=== PATIENT | male | born 1955 | race Two or more races ===

== ENCOUNTER 2020-04-30 07:11 | Day surgery (SDC) | payer MEDICAID, MEDICARE, OTHER ==
[2020-04-30] MEDS ORDERED: Propofol 200 MG/20 ML SDV ONE (07:19)
[2020-04-30] MEDS ORDERED: fentaNYL 100 MCG/2 ML SDV ONE (07:19)
[2020-04-30] MEDS ORDERED: Midazolam 1 MG/ML 2 ML SDV ONE (07:19)
[2020-04-30] MEDS ORDERED: Sodium Chloride 0.9% 1,000 ML IV SCH (07:45)
[2020-04-30] MEDS ORDERED: Lidocaine 1% 2 ML ONE (08:12)
[2020-04-30 09:59] VITALS: BP 113/78; PULSE 67
--- NOTE | 2020-05-03 11:53 | OR ---
DATE OF PROCEDURE: 04/30/2020 SURGEON: Uriah Banerjee MD PROCEDURE: Colonoscopy. FINDINGS: 1. Diverticulosis, mild, mostly limited to sigmoid colon. 2. Transverse colon polyp, approximately 5 mm, completely removed using hot snare wire device. COMPLICATIONS: None. FORENSIC ENGINEER: None. ANESTHESIA: MAC. PREOPERATIVE DIAGNOSIS: Family history of colorectal cancer. POSTOPERATIVE DIAGNOSIS: Family history of colorectal cancer. RISKS: Risks, benefits, alternatives, and limitations including but not limited to infection, bleeding, and perforation were explained to the patient, who wished to proceed. PROCEDURE IN DETAIL: The patient was placed in left lateral decubitus position. Digital rectal exam was performed without abnormality. The scope was introduced and advanced atraumatically to the ileocecal valve. A photo was taken. The scope was brought back through the ascending, transverse, and descending colon and retroflexed. No evidence of old or new blood. The aforementioned polyp was identified and completely removed. The diverticulosis would be described as mild, limited to sigmoid colon. No abnormalities on retroflexion. Greater than 8 minutes was spent removing the scope. The patient tolerated the procedure well. Uriah Banerjee MD /[id number]
== END 2020-04-30 10:20 | disposition home or self-care (01) ==
LOC: JP.SDS 07:11
PROVIDERS: ATTEND Surgery
DX: Z12.11 Encounter for screening for malignant neoplasm of colon (principal); D12.3 Benign neoplasm of transverse colon; K57.30 Diverticulosis of large intestine without perforation or abscess without bleeding; E66.9 Obesity, unspecified; Z80.0 Family history of malignant neoplasm of digestive organs; Z86.010 Personal history of colon polyps; Z68.36 Body mass index [BMI] 36.0-36.9, adult
CPT/HCPCS: 45385; J2001; J2250; J2704; J3010; J7030; 88305

== ENCOUNTER 2022-03-31 06:30 | Day surgery (SDC) | payer MEDICARE, OTHER ==
[2022-03-31] MEDS ORDERED: fentaNYL 100 MCG/2 ML SDV ONE (07:22)
[2022-03-31] MEDS ORDERED: Midazolam 1 MG/ML 2 ML SDV ONE (07:22)
[2022-03-31] MEDS ORDERED: Propofol 200 MG/20 ML SDV ONE (07:22)
[2022-03-31] MEDS ORDERED: Lactated Ringers 1,000 ML IV SCH (07:30)
[2022-03-31 09:47] VITALS: PULSE 68
[2022-03-31 10:06] VITALS: BP 120/66
== END 2022-03-31 10:00 | disposition home or self-care (01) ==
LOC: JP.SDS 06:30
PROVIDERS: ATTEND Family Medicine
DX: Z12.11 Encounter for screening for malignant neoplasm of colon (principal); D12.3 Benign neoplasm of transverse colon; D12.4 Benign neoplasm of descending colon; K57.30 Diverticulosis of large intestine without perforation or abscess without bleeding; E11.9 Type 2 diabetes mellitus without complications; E78.5 Hyperlipidemia, unspecified; Z88.8 Allergy status to other drugs, medicaments and biological substances
CPT/HCPCS: 45380; J2250; J2704; J3010; J7120; 88305